=== PATIENT | female | born 1945 | race Caucasian/White ===

== ENCOUNTER 2018-02-23 06:13 | Inpatient (IN) | payer MEDICARE, OTHER ==
[2018-02-19 10:33] LABS: Basophils # (auto) 0 uL; Basophils % (auto) 0.3 % (0.0-2.0); Eosinophils # (auto) 0.1 uL; Eosinophils % (auto) 2.6 % (0.0-7.0); Hematocrit 44.7 % (36.0-46.0); Hemoglobin 15.1 g/dL (12.2-16.2); Lymphocytes # (auto) 1.1 uL; Lymphocytes % (auto) 21.9 % (10.0-50.0); Mean Corpuscular Hemoglobin 33.4 pg (28.0-32.0); Mean Corpuscular Hgb Conc. 33.8 g/dL (32.0-36.0); Mean Corpuscular Volume 98.7 fL (80.0-100.0); Monocytes # (auto) 0.4 uL; Monocytes % (auto) 8.2 % (0.0-12.0); Neutrophils # (auto) 3.5 uL; Platelet Count (auto) 320 10^3/uL (140-450); Red Blood Cells 4.53 10^6/uL (4.0-5.20); Red Cell Distribution Width 15.3 % (11.8-14.3); White Blood Cell 5.2 10^3/uL (4.4-10.8)
[2018-02-19 10:37] LABS: Urine Bacteria NONE SEEN /hpf (None Seen); Urine Blood Negative /uL (Negative); Urine Specific Gravity 1.012 (1.001-1.035); Urine WBC 1 /hpf (0 - 5)
[2018-02-19 10:53] LABS: INR 0.99 (0.9-1.15); Partial Thromboplastin Time 27.4 sec (22.64-33.71); Prothrombin Time 10.8 sec (9.37-12.3)
[2018-02-19 10:58] LABS: Albumin 3.5 g/dL (3.4-5.0); BUN/Creatinine Ratio 17.6; Calcium 9.1 mg/dL (8.5-10.1)
[2018-02-19 11:12] LABS: Bilirubin, Total 0.4 mg/dL (0.2-1.0); Total Protein 7.1 g/dL (6.4-8.2)
[~2018-02-23] VITALS: Ht 165.1 cm; Wt 87.0 kg
[2018-02-23] VITALS (8 sets, daily range): BP systolic 73–120; BP diastolic 47–71
[~2018-02-23 06:13] MED LIST: ASPI81TA27 PO; FAMO-12 PO; HYDR25TA4 PO; HYDR500C PO; LOSA25TA9 PO; MULTTAB61 PO; POTA99TA13 PO; SIMV40TA96 PO
[2018-02-23] MEDS ORDERED: ceFAZolin 1GM/100ML 200 ML IV ONE (06:53)
[2018-02-23] MEDS ORDERED: TETRACAINE 1% INJ 2 ML VIAL IJ ONE (07:13)
[2018-02-23] MEDS ORDERED: MORPHINE SULF(PF) 0.5MG/ML 10ML VIAL ONE (07:18)
[2018-02-23] MEDS ORDERED: DEXAMETHASONE SOD PHOS 10MG/1ML VIAL INJ ONE ×2 (07:19→13:27)
[2018-02-23] MEDS ORDERED: PROPOFOL 10 MG/ML 20 ML IV ONE ×2 (07:19→09:15)
[2018-02-23] MEDS ORDERED: MIDAZOLAM HCL 1MG/1ML-2 ML VIAL ONE ×3 (07:19→11:55)
[2018-02-23] MEDS ORDERED: fentaNYL CITRATE 100 MCG/2 ML VL ONE ×2 (07:19→11:55)
[2018-02-23] MEDS ORDERED: DEXAMETHASONE SOD PHOS 10MG/1ML VIAL INJ IV PRN (08:15)
[2018-02-23] MEDS ORDERED: NALBUPHINE HCL 10 MG/1ml INJECTION SUBCUT ONE (08:15)
[2018-02-23] MEDS ORDERED: diphenhdrAMINE HCL 50 MG/1 ML VL IV PRN (08:15)
[2018-02-23] MEDS ORDERED: HYDROmorphone HCL 2 MG/ML VL IV PRN ×2 (08:15→10:30)
[2018-02-23] MEDS ORDERED: LABETALOL HCL 5 MG/ML 4ML SYRINGE IV PRN (08:15)
[2018-02-23] MEDS ORDERED: NALOXONE HCL 0.4 MG/ML VIAL IV PRN (08:15)
[2018-02-23] MEDS ORDERED: ONDANSETRON HCL 4 MG/2 ML VIAL IV PRN ×2 (08:15→10:30)
[2018-02-23] MEDS ORDERED: ePHEDrine SULFATE 50 MG/ML AMP IV PRN (08:15)
[2018-02-23] MEDS ORDERED: PHENYLEPHRINE HCL 10 MG/ML VL ONE (08:52)
[2018-02-23] MEDS ORDERED: LACTATED RINGER'S 1,000 ML IV SCH (10:26)
[2018-02-23] MEDS ORDERED: ACETAMINOPHEN 325 MG TAB PO PRN (10:30)
[2018-02-23] MEDS ORDERED: TEMAZEPAM 15 MG CAP PO PRN (10:30)
[2018-02-23] MEDS ORDERED: MEPERIDINE HCL (50 MG/ML) 1 ML VIAL ONE (11:55)
[2018-02-23] MEDS: ceFAZolin 1GM/100ML 50 ML IV SCH ×3 (12:27→23:42)
[2018-02-23] MEDS: oxyCODONE ER 10 MG TAB PO SCH ×2 (12:27→22:00)
[2018-02-23] MEDS ORDERED: ETOMIDATE (2MG/ML) 20ML VIAL IV ONE (13:27)
[2018-02-23] MEDS: SODIUM CHLOR 0.9% PF (SALINE LOCK) 10ML VIAL/SYR IV SCH ×2 (14:00→22:32)
[2018-02-23] MEDS ORDERED: SODIUM CHLORIDE 0.9% 500 ML IV ONE ×2 (19:30→21:15)
[2018-02-23] MEDS: HYDROXYUREA 500 MG CAP PO SCH (22:32)
[2018-02-23] MEDS: DOCUSATE SOD 100 MG CAP PO SCH (22:32)
[2018-02-23] MEDS: FAMOTIDINE 20 MG TAB PO SCH (22:32)
[2018-02-24] VITALS (7 sets, daily range): BP systolic 90–104; BP diastolic 49–58
[2018-02-24] MEDS ORDERED: ALBUMIN 5% 250 ML IV ONE (00:15)
[2018-02-24] MEDS: KETOROLAC TROMETH 30 MG/ML 1ML VIAL IV PRN ×2 (00:56→08:55)
[2018-02-24 01:11] LABS: Albumin 2.8 g/dL (3.4-5.0); BUN/Creatinine Ratio 19.8; Calcium 8.1 mg/dL (8.5-10.1); Potassium 4.6 mmol/L (3.5-5.1)
[2018-02-24 01:22] LABS: Bilirubin, Total 0.3 mg/dL (0.2-1.0); Total Protein 5.7 g/dL (6.4-8.2)
[2018-02-24 02:59] LABS: Basophils # (auto) 0.1 uL; Basophils % (auto) 0.4 % (0.0-2.0); Eosinophils # (auto) 0 uL; Eosinophils % (auto) 0.1 % (0.0-7.0); Hematocrit 35.8 % (36.0-46.0); Hemoglobin 11.9 g/dL (12.2-16.2); Lymphocytes # (auto) 0.5 uL; Lymphocytes % (auto) 4.6 % (10.0-50.0); Mean Corpuscular Hgb Conc. 33.2 g/dL (32.0-36.0); Mean Corpuscular Volume 99.6 fL (80.0-100.0); Monocytes # (auto) 0.7 uL; Monocytes % (auto) 6.2 % (0.0-12.0); Neutrophils # (auto) 10.6 uL; Neutrophils % (auto) 88.7 % (37.0-80.0); Platelet Count (auto) 257 10^3/uL (140-450); Red Blood Cells 3.59 10^6/uL (4.0-5.20); Red Cell Distribution Width 14.8 % (11.8-14.3)
[2018-02-24] MEDS ORDERED: SODIUM CHLORIDE 0.9% 500 ML IV ONE ×2 (03:15→13:45)
[2018-02-24] MEDS: SODIUM CHLORIDE 0.9% 1,000 ML IV SCH ×2 (03:34→17:58)
[2018-02-24] MEDS ORDERED: LEVOFLOXACIN 500MG 100 ML IV SCH (04:00)
[2018-02-24] MEDS: SODIUM CHLOR 0.9% PF (SALINE LOCK) 10ML VIAL/SYR IV SCH ×3 (06:10→21:50)
[2018-02-24] MEDS: DOCUSATE SOD 100 MG CAP PO SCH ×2 (11:07→21:50)
[2018-02-24] MEDS: LOSARTAN POTASSIUM 25 MG TAB PO SCH ×2 (11:10→11:11)
[2018-02-24] MEDS: oxyCODONE ER 10 MG TAB PO SCH ×3 (11:10→21:51)
[2018-02-24] MEDS: FAMOTIDINE 20 MG TAB PO SCH ×2 (11:11→21:51)
[2018-02-24] MEDS: ENOXAPARIN SOD 40 MG/0.4 ML SYRINGE SC SCH (11:12)
[2018-02-24] MEDS: HYDROcodone-ACET 10/325MG TAB PO PRN ×2 (11:15→17:59)
[2018-02-24] MEDS ORDERED: KETOROLAC TROMETH 30 MG/ML 1ML VIAL IV PRN (13:45)
[2018-02-24] MEDS: HYDROXYUREA 500 MG CAP PO SCH (21:50)
[2018-02-25] MEDS: HYDROcodone-ACET 10/325MG TAB PO PRN ×4 (02:16→15:23)
[2018-02-25 04:55] VITALS: BP 121/63
[2018-02-25] MEDS: SODIUM CHLORIDE 0.9% 1,000 ML IV SCH (05:26)
[2018-02-25] MEDS: SODIUM CHLOR 0.9% PF (SALINE LOCK) 10ML VIAL/SYR IV SCH ×2 (05:29→14:02)
[2018-02-25 07:44] LABS: Basophils # (auto) 0 uL; Basophils % (auto) 0.2 % (0.0-2.0); Eosinophils # (auto) 0.1 uL; Eosinophils % (auto) 2.2 % (0.0-7.0); Hematocrit 31.6 % (36.0-46.0); Hemoglobin 10.8 g/dL (12.2-16.2); Lymphocytes # (auto) 0.8 uL; Lymphocytes % (auto) 11.8 % (10.0-50.0); Mean Corpuscular Hemoglobin 33.8 pg (28.0-32.0); Mean Corpuscular Hgb Conc. 34.1 g/dL (32.0-36.0); Monocytes # (auto) 0.6 uL; Monocytes % (auto) 9.9 % (0.0-12.0); Neutrophils # (auto) 4.9 uL; Neutrophils % (auto) 75.9 % (37.0-80.0); Platelet Count (auto) 216 10^3/uL (140-450); Red Blood Cells 3.19 10^6/uL (4.0-5.20); Red Cell Distribution Width 15.4 % (11.8-14.3); White Blood Cell 6.5 10^3/uL (4.4-10.8)
[2018-02-25 09:09] VITALS: BP 113/65
[2018-02-25] MEDS: oxyCODONE ER 10 MG TAB PO SCH (10:00)
[2018-02-25] MEDS ORDERED: LOSARTAN POTASSIUM 25 MG TAB PO SCH (10:00)
[2018-02-25] MEDS: ENOXAPARIN SOD 40 MG/0.4 ML SYRINGE SC SCH (10:01)
[2018-02-25] MEDS: FAMOTIDINE 20 MG TAB PO SCH (10:01)
[2018-02-25] MEDS: DOCUSATE SOD 100 MG CAP PO SCH (10:02)
[2018-02-25 13:15] VITALS: BP 100/49
[2018-02-25 14:04] VITALS: BP 113/65
[2018-02-25 17:11] VITALS: BP 119/68
== END 2018-02-25 17:45 | disposition home health service (06) | DRG 470 ==
LOC: SUR 06:13 → TELE-EAST 06:14
PROVIDERS: ADMIT Orthopaedic Surgery; ATTEND Internal Medicine
PROC: 0MBP0ZZ Excision of Left Knee Bursa and Ligament, Open Approach (ICD-10-PCS; 2018-02-23)
PROC: 0QSF04Z Reposition Left Patella with Internal Fixation Device, Open Approach (ICD-10-PCS; 2018-02-23)
PROC: 0SRD0J9 Replacement of Left Knee Joint with Synthetic Substitute, Cemented, Open Approach (ICD-10-PCS; principal; 2018-02-23 07:24)
DX: M17.12 Unilateral primary osteoarthritis, left knee (principal); S82.202A Unspecified fracture of shaft of left tibia, initial encounter for closed fracture; S82.142A Displaced bicondylar fracture of left tibia, initial encounter for closed fracture; I95.9 Hypotension, unspecified; D72.828 Other elevated white blood cell count; E78.5 Hyperlipidemia, unspecified; M21.062 Valgus deformity, not elsewhere classified, left knee; I10 Essential (primary) hypertension; M24.562 Contracture, left knee; M70.42 Prepatellar bursitis, left knee; J45.909 Unspecified asthma, uncomplicated; Z82.62 Family history of osteoporosis; Z96.651 Presence of right artificial knee joint; X58.XXXA Exposure to other specified factors, initial encounter; Y93.89 Activity, other specified; Y92.89 Other specified places as the place of occurrence of the external cause; Y99.8 Other external cause status
CPT/HCPCS: 36415; 73562; 80053; 81001; 83605; 85025; 85610; 85730; 86850; 86900; 86901; 97116; 97163; J0690; J1100; J1885; J1956; J2250; J2405; J2704